=== PATIENT | female | born 1995 | race Hispanic/Latino ===

== ENCOUNTER 2024-02-23 22:13 | Inpatient (IN) | payer OTHER ==
[~2024-02-23] VITALS: Ht 162.6 cm; Wt 75.3 kg
[2024-02-23 22:53] LABS: APPEARANCE,URINE CLEAR (CLEAR); BILIRUBIN,URINE NEGATIVE (NEGATIVE); COLOR,URINE LIGHT-YELLOW (YELLOW); GLUCOSE, URINE (UA) NEGATIVE (NEGATIVE); KETONES,URINE 100 mg/dL (NEGATIVE); LEUKOCYTE ESTERASE ,URINE 75 Leu/uL (NEGATIVE); NITRATE,URINE NEGATIVE (NEGATIVE); PH,URINE 6.5 (5.0-8.0); PROTEIN,URINE 20 mg/dL (NEGATIVE); UROBILINOGEN,URINE 0.2 mg/dL (0.2-1.0)
[2024-02-23] MEDS ORDERED: LACTATED RINGERS 1000ML 1,000 ML IV PRN (23:00)
[2024-02-23] MEDS ORDERED: OXYTOCIN-LR 30 UNITS/500ML 500 ML IV SCH (23:00)
[2024-02-23] MEDS ORDERED: AMPICILLIN 2GM+NS 100ML 100 ML IV ONE (23:01)
[2024-02-23] MEDS: AMPICILLIN 2GM+NS 100ML 100 ML IV SCH (23:06)
[2024-02-23] MEDS: MEPERIDINE-PF 50 MG/ML SYG IVP PRN (23:10)
[2024-02-23] MEDS: PROMETHAZINE HCL 25 MG/ML 1ML AMPULE IM PRN (23:10)
[2024-02-23 23:11] LABS: ADD UA MICROSCOPIC YES
[2024-02-23 23:13] LABS: HEMATOCRIT 37.7 % (36-48); MEAN CORPUSCULAR HEMOGLOBIN 27.5 pg (27.0-33.0); MEAN CORPUSCULAR HGB CONC 32.6 g/dL (32.0-36.0); MEAN CORPUSCULAR VOLUME 84.3 fL (79-99); RED BLOOD CELL COUNT(AUTO) 4.47 MIL/uL (4.00-5.50); RED CELL DISTRIBUTION WIDTH 14.2 % (11.0-15.5); WHITE BLOOD COUNT (AUTO) 7.8 K/uL (4.8-10.8)
[2024-02-23] MEDS: OXYTOCIN-LR 30 UNITS/500ML 500 ML IV SCH (23:19)
[2024-02-23 23:22] LABS: MUCUS,URINE RARE LPF (None Seen); SQUAMOUS EPITHELIAL CELL,UR FEW /HPF (0-2)
[2024-02-23] MEDS ORDERED: LIDOCAINE HCL 1% 20 ML VIAL ONE (23:35)
[2024-02-24] VITALS (7 sets, daily range): BP systolic 93–107; BP diastolic 54–70; PULSE 68–92; RESP 17–20
[2024-02-24 00:02] LABS: HIV 1&2 ANTIBODY Non-Reactive (Negative)
[2024-02-24 00:03] LABS: HIV-1 p24 Antigen Non-Reactive (Negative)
[2024-02-24] MEDS ORDERED: ACETAMINOPHEN 325 MG TAB PO PRN (01:00)
[2024-02-24] MEDS ORDERED: DIPH,PERTUSS(ACELL),TET VAC/PF 0.5 ML VIAL IM PRN (01:00)
[2024-02-24] MEDS ORDERED: ACETAMINOPHEN WITH CODEINE 1 TAB TAB PO PRN (01:00)
[2024-02-24] MEDS ORDERED: BENZOCAINE/LANOLIN/ALOE VERA 60 ML AEROSOL TP PRN (01:00)
[2024-02-24] MEDS ORDERED: WITCH HAZEL 1 PAD TP PRN (01:00)
[2024-02-24] MEDS ORDERED: MEASLES/MUMPS/RUBELLA VACCINE, LIVE 0.5 ML/VIAL SQ PRN (01:00)
[2024-02-24] MEDS ORDERED: LANOLIN 30GM OINTMENT TP PRN (01:00)
[2024-02-24] MEDS: OXYTOCIN-LR 30 UNITS/500ML 500 ML IV SCH (02:23)
[2024-02-24] MEDS: AMPICILLIN 1GM+NS 50ML 50 ML IV SCH (03:00)
[2024-02-24 04:09] LABS: AMPHET/METH SCREEN,URINE NEGATIVE (NEGATIVE); BARBITURATE SCREEN, URINE NEGATIVE (NEGATIVE); BENZODIAZEPINES SCREEN,URINE NEGATIVE (NEGATIVE); CANNABINOID SCREEN,URINE NEGATIVE (NEGATIVE); COCAINE SCREEN,URINE NEGATIVE (NEGATIVE); OPIATE SCREEN,URINE NEGATIVE (NEGATIVE); PHENCYCLIDINE SCREEN,URINE NEGATIVE (NEGATIVE)
[2024-02-24] MEDS ORDERED: PREN-154 PO (04:13)
[2024-02-24 06:59] LABS: HEMATOCRIT 34.9 % (36-48); MEAN CORPUSCULAR HEMOGLOBIN 27.8 pg (27.0-33.0); MEAN CORPUSCULAR VOLUME 84.3 fL (79-99); RED BLOOD CELL COUNT(AUTO) 4.14 MIL/uL (4.00-5.50); RED CELL DISTRIBUTION WIDTH 14.3 % (11.0-15.5)
[2024-02-24] MEDS: DOCUSATE SODIUM 100 MG CAP PO SCH (09:04)
[2024-02-24] MEDS: IBUPROFEN 600 MG TABLET PO PRN (09:04)
[2024-02-24 15:09] LABS: RAPID PLASMA REAGIN NONREACTIVE (NONREACTIVE)
[2024-02-25 03:32] VITALS: BP 88/56; PULSE 69; RESP 18
[2024-02-25 06:48] VITALS: BP 109/72; PULSE 76; RESP 18
[2024-02-25] MEDS ORDERED: IBUP-1493 PO (10:24)
== END 2024-02-25 11:00 | disposition home or self-care (01) | DRG 807 ==
LOC: EDH 22:13 → OBSVTOIN 22:14 → LDH 22:14 → WSH 02-24 02:20
PROVIDERS: ADMIT Internal Medicine; ATTEND Internal Medicine
PROC: 10E0XZZ Delivery of Products of Conception, External Approach (ICD-10-PCS; principal; 2024-02-23)
PROC: 0KQM0ZZ Repair Perineum Muscle, Open Approach (ICD-10-PCS; 2024-02-23)
PROC: 0UQGXZZ Repair Vagina, External Approach (ICD-10-PCS; 2024-02-23)
DX: O69.81X0 Labor and delivery complicated by cord around neck, without compression, not applicable or unspecified (principal); Z37.0 Single live birth; Z3A.39 39 weeks gestation of pregnancy; O70.1 Second degree perineal laceration during delivery
CPT/HCPCS: 36415; 80305; 81001; 85027; 86592; 86701; 86850; 86900; 86901; 87088; 87340; 87390; G0378; J0290; J2175; J2550